=== PATIENT | male | born 1990 | race Caucasian/White ===

== ENCOUNTER → 2021-09-30 | Outpatient (CLI) | payer OTHER, BC ==
[~2021-09-30] MED LIST: FLEXERIL 10 MG10 MG PO; PREDNISONE 20 M20 MG PO; TORADOL 10 MG T10 MG PO
== END ==
LOC: EROP 20:50
DX: Z20.822 Contact with and (suspected) exposure to COVID-19 (principal)
CPT/HCPCS: U0002

== ENCOUNTER → 2021-11-19 | Emergency (ER) | payer OTHER | END | disposition home or self-care (01) | LOC: ER1 23:12 | DX: T78.49XA Other allergy, initial encounter (principal); H05.222 Edema of left orbit | CPT/HCPCS: 96374; 96375; 99283; J1200; J2930 ==